=== PATIENT | female | born 1965 | race Caucasian/White ===

== ENCOUNTER 2020-10-06 10:03 | Inpatient (IN) | payer BC, OTHER ==
[~2020-10-06] VITALS: Ht 152.5 cm; Wt 105.3 kg
[2020-10-06] MEDS ORDERED: DOXY100C2 PO (10:45)
[2020-10-06] MEDS ORDERED: CLOR7.5T3 PO (10:45)
[2020-10-06] MEDS ORDERED: SERT-414 PO (10:45)
[2020-10-06] MEDS ORDERED: ALBU2.5V4 INH (10:45)
--- NOTE | 2020-10-06 11:51 | Tele-ICU Consult ---
History of Present Illness History of Present Illness Date Seen by Provider: Oct 06, 2020 Time Seen by Provider: 11:48 Date of Admission Allergies and Home Medications Allergies Uncoded Allergies: NKDA (Allergy, Unknown, 10/06/20) NO KNOWN DRUG ALLERGIES Past Medical/Social/Family Hx Patient Social History Tobacco Use?: No Smoking Status: Never a Smoker Smokeless Tobacco Frequency: Never a User Use of E-Cig and/or Vaping dev: No Substance use?: No Alcohol Use?: No Pt stated abuse/neglect: No Immunizations Up To Date Influenza Vaccine Up-to-Date: No; Not Current First/Initial COVID19 Vaccinat: NON-VACCINATED Tetanus Booster (TDap): Unknown Hepatitis A: No Hepatitis B: No TB Skin Test: None Current Status status: No status: No Advance Directives: No Communicates: Verbally Primary Language: Slovak Preferred Spoken Language: Slovak Is interpretation needed?: No Additional sensory deficits: N/A Implanted or Applied Medical D: None Review of Systems Constitutional: see HPI Sepsis Event Evaluation Height, Weight, BMI Height: '" Weight: lbs. oz. kg; 42.44 BMI Method: Exam Exam Patient acknowledged, consented, and participated in this virtual visit which was conducted using real time audio/video Vital Signs Date Time Temp Pulse Resp B/P (MAP) Pulse Ox O2 Delivery O2 Flow Rate FiO2 10/06/20 11:00 102 31 150/94 (112) 90 Vapotherm 40.00 100.00 10/06/20 10:35 105 10/06/20 10:15 103 31 156/95 (115) 89 Vapotherm 40.00 100.00 Height & Weight Height: '" Weight: lbs. oz. kg; 42.44 BMI Method: General Appearance: Moderate Distress Assessment/Plan Assessment/Plan (Tele-ICU Physician , consultation) Available chart/ vitals / labs / Images reviewed H&P is from discussin with Dr Seth Patient's information available about PMH, Shx, Fhx allergy reviewed in EMR. ROS as per chart and RN report Patient admitted 10/06 - resp failure , intubated and transferred from other facility Now in ICU, hemodynamically stable Video assessment done using teleICU camera, rest of exam as per RN Discussed with RN. Consultants: A/P Acute hypoxic resp failure - on vapotherm , hypoxix - will try BIPAP with precedex , ordered cxr and abg - VERY HIGH RISK FOR INTUBATION -prone position if able - conservative fluid strategy (aim for even or negative fluid balance - RECEIVED 1L IN ER ( high lactate is related to hypoxix and work of breathing ) CXOR-Ntblbubnysw-4/COVID-19 infection- ( symptoms 7.12 , Dx 09/27 - was on doxy -? anything else ) -Remdesivir- as per local MD ( given sever dz , > 2 weeks sickness - no major clinical benefit ) -Steroids IV - started 10/06 -Hypercoagulable state ? , DDIMER on 10/06 1.3 reportedly -> lovenox 100 given in ER, follow D dimer monitor for superimposed bact PNA Will awith bedside MD H=P for additional information , now priority to assess needs for intubation patient is full code additional plans will be in collaboration with bedside consultants and IM MDs. Discussed with RN to reach out if any questions or concerns A total of 35 minutes of critical care time was devoted to this patient today, required to treat and/or prevent further deterioration of critical care condition ( as above ) . BERNARDO BEY MD Oct 06, 2020 11:51
[2020-10-06] MEDS: DexMEDEtomidine 250 ML DRIP 250 ML IV SCH ×2 (12:11→22:51)
[2020-10-06 12:39] LABS: ABG BASE EXCESS -1.5 MMOL/L (-2.5-2.5); ABG OXYGEN SATURATION 87 % (94-100); ABG PCO2 41 MMHG (35-45); ABG PH 7.37 (7.37-7.43); ABG PO2 66 MMHG (79-93); ABG TCO2 24.1 MMOL/L (21.0-31.0)
[2020-10-06 12:41] LABS: ALLENS TEST YES-POS; INSPIRED O2 100%; PATIENT TEMP 99.8; VENTILATOR NO
[2020-10-06] MEDS ORDERED: diphenhydrAMINE 25 MG TAB (BENADRYL) PO PRN (13:00)
[2020-10-06] MEDS ORDERED: polyethylene glycoL POWDER 17 GM (MIRALAX) PACK PO PRN (13:00)
[2020-10-06] MEDS ORDERED: ONDANSETRON 4 MG (ZOFRAN) ORAL DISSOLVE TAB PO PRN (13:00)
[2020-10-06] MEDS ORDERED: MELATONIN 3 MG TABLET PO PRN (13:00)
[2020-10-06] MEDS ORDERED: ANTACID SUSP 30 ML UDC (MYLANTA) PO PRN (13:00)
[2020-10-06] MEDS ORDERED: ONDANSETRON 4 MG/2 ML (SDV) Z0FRAN IV PRN (13:00)
[2020-10-06] MEDS ORDERED: PHARMACY TO DOSE SQ SCH (13:00)
--- NOTE | 2020-10-06 13:08 | Diagnostic Imaging Report ---
INDICATION: Respiratory distress. FINDINGS: Portable chest. There are 5 lobe scattered alveolar and interstitial infiltrates. Heart is not enlarged. No pneumothorax or pleural effusion. No bony abnormalities. IMPRESSION: Bilateral 5 lobe infiltrate. This can be seen with the COVID pneumonia. Dictated by: Dictated on workstation # [id number]
[2020-10-06] MEDS ORDERED: ENOXAPARIN 100 MG/1 ML (LOVENOX) SYR SC SCH (13:15)
[2020-10-06] MEDS ORDERED: CATHETER FLUSH 10 ML SYR IV PRN ×2 (13:15→13:30)
[2020-10-06] MEDS ORDERED: LACTATED RINGERS 1,000 ML IV ONE (13:15)
[2020-10-06] MEDS ORDERED: TOCILIZUMAB INJECTION (NON-FOR 800 MG in NS (IVPB) 60 ML IV ONE (13:30)
[2020-10-06] MEDS ORDERED: RT-ALBUTEROL INHALER HFA (VENTOLIN HFA) 18 GM IH PRN (14:00)
[2020-10-06 14:47] LABS: POTASSIUM 3.9 MMOL/L (3.6-5.0)
[2020-10-06 14:48] LABS: CALCIUM 7.9 MG/DL (8.5-10.1)
[2020-10-06 14:52] LABS: CREATININE SERUM 0.58 MG/DL (0.60-1.30)
[2020-10-06 15:03] VITALS: BP 138/99
[2020-10-06] MEDS: RT-ALBUTEROL INHALER HFA (VENTOLIN HFA) 18 GM IH SCH ×3 (15:03→22:10)
[2020-10-06 16:23] VITALS: BP 124/84
[2020-10-06] MEDS ORDERED: CEFEPIME INJECTION 1,000 MG in WATER (STERILE) FOR INJECTION 10 ML IV NR (16:30)
[2020-10-06] MEDS ORDERED: AZITHROMYCIN INJECTION 500 MG in NS (IVPB) 250 ML IV NR (16:30)
--- NOTE | 2020-10-06 18:06 | History & Physical-Hospitalist ---
History of Present Illness HPI/Chief Complaint Leslie Delgado is a 55-year-old female with anxiety and depression who presented with shortness of breath. She was diagnosed with COVID nine days ago. She started having symptoms 11 days ago. She did not receive the vaccine. She initially presented to the [place] emergency room. Her oxygen saturation was 33% at that time. She was started on high flow oxygen and remained hypoxic. They recommended intubation but she refused. She was started on BiPAP. At the time of my examination she is now wearing a nonrebreather. She appears comfortable and is saturating well. She says she got anxious with the BiPAP on because she is claustrophobic. She is agreeable to being intubated if that is required. She has been having fevers. She has been having a cough. She denies nausea and vomiting. She has had diarrhea. Source: patient Exam Limitations: no limitations Date Seen 10/06/20 Time Seen by a Provider: 13:00 Attending Physician Liliam Shaffer MD PCP Referring Physician Date of Admission Oct 06, 2020 at 10:03 Home Medications & Allergies Home Medications Reviewed patient Home Medication Reconciliation performed by pharmacy medication reconciliations mechanical facilities technician and/or nursing. Patients Allergies have been reviewed. Allergies Allergies Uncoded Allergies NKDA ( Allergy, Unknown, 10/06/20) NO KNOWN DRUG ALLERGIES Past Edpvdey-Ctwaoq-Qurgwx Hx Patient Social History Tobacco Use?: No Smoking Status: Never a Smoker Smokeless Tobacco Frequency: Never a User Use of E-Cig and/or Vaping dev: No Substance use?: No Alcohol Use?: No Pt feels they are or have been: No Immunizations Up To Date First/Initial COVID19 Vaccinat: NON-VACCINATED Tetanus Booster (TDap): Unknown Hepatitis A: No Hepatitis B: No Current Status status: No status: No Advance Directives: No Communicates: Verbally Primary Language: Thai Preferred Spoken Language: Thai Is interpretation needed?: No Additional sensory deficits: N/A Implanted or Applied Medical D: None Family Medical History No Pertinent Family Hx Review of Systems Constitutional: fever, malaise EENTM: no symptoms reported Respiratory: cough, short of breath Cardiovascular: no symptoms reported Gastrointestinal: diarrhea Genitourinary: no symptoms reported Musculoskeletal: no symptoms reported Skin: no symptoms reported Psychiatric/Neurological: No Symptoms Reported Physical Exam Physical Exam Vital Signs Vital Signs - First Documented 10/06/20 10/06/20 10/06/20 10:10 10:15 10:25 Temp 37.8 Pulse 103 Resp 31 B/P (MAP) 156/95 (115) Pulse Ox 89 O2 Delivery Vapotherm O2 Flow Rate 40.00 100.00 FiO2 100 Capillary Refill : Height, Weight, BMI Height: '" Weight: lbs. oz. kg; 42.44 BMI Method: General Appearance: Anxious, Moderate Distress (Uncomfortable) HEENT: PERRL/EOMI, Other (Wearing nonrebreather) Neck: Normal Inspection, Supple Respiratory: No Respiratory Distress, Decreased Breath Sounds Cardiovascular: Regular Rate, Rhythm, No Edema, No Murmur, Normal Peripheral Pulses Gastrointestinal: Normal Bowel Sounds, Non Tender, Soft Extremity: Normal Inspection, Non Tender, No Pedal Edema Neurologic/Psychiatric: Alert, Oriented x3, No Motor/Sensory Deficits, Normal Mood/Affect Skin: Normal Color, Warm/Dry Lymphatic: No Adenopathy Results Results/Procedures Labs Laboratory Tests 10/06/20 14:00 Patient resulted labs reviewed. Imaging: Reviewed Imaging Report Assessment/Plan Admission Diagnosis Acute respiratory failure due to COVID-19 Admission Status: Inpatient Order (span 2 midnights) Reason for Inpatient Admission: Respiratory failure Assessment and Plan Acute respiratory failure due to COVID-19 Bacterial pneumonia Hypercoagulable state associated with COVID-19 Covid+ 9 days ago, symptoms started 11 days ago Profoundly hypoxic on arrival Admit to ICU on BiPAP/Vapotherm Begin Decadron Giving Actemra, discussed risks/benefits/EUA use and patient agrees Procalcitonin elevated Chest xray with 5 lobe infiltrates Begin Cefepime and Azithromycin D-dimer elevated, monitor Therapeutic Lovenox Protonix Morbid obesity Clinically significant, no acute management needs Critical Care Critically Ill Patient Diagnosis/Problems Diagnosis/Problems (1) Acute respiratory failure due to COVID-19 Status: Acute (2) Bacterial pneumonia Status: Acute (3) Hypercoagulable state associated with COVID-19 Status: Acute (4) Morbid obesity Status: Chronic (5) Anxiety and depression Status: Chronic LILIAM SHAFFER MD Oct 06, 2020 18:06
[2020-10-06] MEDS: ENOXAPARIN 100 MG/1 ML (LOVENOX) SYR SC SCH (18:19)
[2020-10-06 19:10] VITALS: BP 125/86
[2020-10-06] MEDS: SENNOSIDES 8.6 MG (SENOKOT) TAB PO SCH (20:48)
[2020-10-06] MEDS: DOCUSATE SODIUM 100 MG (COLACE) CAP PO SCH (20:48)
[2020-10-06 22:11] VITALS: BP 109/74
[2020-10-07] MEDS: CEFEPIME INJECTION 1,000 MG in WATER (STERILE) FOR INJECTION 10 ML IV SCH ×5 (00:27→23:29)
[2020-10-07] MEDS: RT-ALBUTEROL INHALER HFA (VENTOLIN HFA) 18 GM IH SCH ×4 (02:42→19:13)
[2020-10-07 03:23] LABS: BASOPHILS % (AUTO) 0 % (0-10); EOSINOPHILS % (AUTO) 0 % (0-10); HEMATOCRIT 34 % (35-52); HEMOGLOBIN 11.1 g/dL (11.5-16.0); LYMPHOCYTES # (AUTO) 0.9 10^3/uL (1.0-4.0); LYMPHOCYTES % (AUTO) 16 % (12-44); MEAN CORPUSCULAR HEMOGLOBIN 29 pg (25-34); MEAN CORPUSCULAR HGB CONC 33 g/dL (32-36); MEAN CORPUSCULAR VOLUME 88 fL (80-99); MONOCYTES # (AUTO) 0.2 10^3/uL (0.0-1.0); MONOCYTES % (AUTO) 3 % (0-12); NEUTROPHILS # (AUTO) 4.4 10^3/uL (1.8-7.8); NEUTROPHILS % (AUTO) 77 % (42-75); PLATELET COUNT 345 10^3/uL (130-400); WHITE BLOOD COUNT 5.7 10^3/uL (4.3-11.0)
[2020-10-07 03:36] LABS: ALBUMIN 3.3 GM/DL (3.2-4.5); POTASSIUM 3.6 MMOL/L (3.6-5.0)
[2020-10-07 03:39] LABS: TOTAL PROTEIN 6.3 GM/DL (6.4-8.2)
[2020-10-07 03:40] LABS: BILIRUBIN,TOTAL 0.3 MG/DL (0.1-1.0)
[2020-10-07 03:42] LABS: CREATININE SERUM 0.72 MG/DL (0.60-1.30); PHOSPHORUS 2.6 MG/DL (2.3-4.7)
[2020-10-07 03:45] LABS: MAGNESIUM 2.1 MG/DL (1.6-2.4)
[2020-10-07] MEDS: DexMEDEtomidine 250 ML DRIP 250 ML IV SCH ×3 (06:09→17:57)
[2020-10-07] MEDS: ENOXAPARIN 100 MG/1 ML (LOVENOX) SYR SC SCH (06:10)
[2020-10-07 07:35] VITALS: BP 148/100
[2020-10-07] MEDS: POTASSIUM CL 10MEQ/50ML IVPB 50 ML IV SCH ×2 (08:46→09:52)
[2020-10-07] MEDS: PANTOPRAZOLE 40 MG (PROTONIX) VIAL IV SCH (08:46)
[2020-10-07] MEDS: SENNOSIDES 8.6 MG (SENOKOT) TAB PO SCH ×2 (08:46→20:22)
[2020-10-07] MEDS: AZITHROMYCIN INJECTION 250 MG in NS (IVPB) 250 ML IV SCH (08:46)
[2020-10-07] MEDS: DOCUSATE SODIUM 100 MG (COLACE) CAP PO SCH ×2 (08:46→20:22)
--- NOTE | 2020-10-07 09:50 | Progress Note - Hospitalist ---
Subjective HPI/CC On Admission Date Seen by Provider: Oct 07, 2020 Time Seen by Provider: 06:55 Leslie Delgado is a 55-year-old female with anxiety and depression who presented with shortness of breath. She was diagnosed with COVID nine days ago. She started having symptoms 11 days ago. She did not receive the vaccine. She initially presented to the [place] emergency room. Her oxygen saturation was 33% at that time. She was started on high flow oxygen and remained hypoxic. They recommended intubation but she refused. She was started on BiPAP. At the time of my examination she is now wearing a nonrebreather. She appears comfortable and is saturating well. She says she got anxious with the BiPAP on because she is claustrophobic. She is agreeable to being intubated if that is required. She has been having fevers. She has been having a cough. She denies nausea and vomiting. She has had diarrhea. Subjective/Events-last exam She is feeling a little bit better today. She is not feeling short of breath. She does feel anxious. Focused Exam Lactate Level 10/06/20 14:00: Lactic Acid Level 1.14 Objective Exam Vital Signs Vital Signs Date Time Temp Pulse Resp B/P (MAP) Pulse Ox O2 Delivery O2 Flow Rate FiO2 10/07/20 09:03 NIV Bilevel 95.00 10/07/20 09:00 71 31 91 10/07/20 08:00 100 10/07/20 07:59 35.5 10/07/20 04:00 148/100 (116) Capillary Refill : General Appearance: No Apparent Distress, Anxious Respiratory: Lungs Clear, No Respiratory Distress, Other Cardiovascular: Regular Rate, Rhythm, No Edema, No Murmur (Wearing BiPAP) Gastrointestinal: Normal Bowel Sounds, Non Tender, Soft Extremity: Normal Inspection, Non Tender, No Pedal Edema Neurologic/Psychiatric: Alert, Oriented x3, No Motor/Sensory Deficits, Normal Mood/Affect Skin: Normal Color, Warm/Dry Results/Procedures Lab Laboratory Tests 10/06/20 14:00 10/07/20 03:10 Patient resulted labs reviewed. Imaging: Reviewed Imaging Report Assessment/Plan Assessment and Plan Assess & Plan/Chief Complaint Acute respiratory failure due to COVID-19 Bacterial pneumonia Hypercoagulable state associated with COVID-19 Covid+ 09/27, symptoms started 09/24 Profoundly hypoxic on arrival Chest xray with 5 lobe infiltrates Currently on BiPAP, attempt Vapotherm today if able Continue Decadron s/p Actemra Convalescent plasma ordered, discussed risk/benefits/EUA use and patient agrees Procalcitonin elevated Continue Cefepime and Azithromycin D-dimer mildly elevated, monitor Prophylactic Lovenox Protonix Morbid obesity Clinically significant, no acute management needs DVT prophylaxis: Lovenox Critical Care Critically Ill Patient Diagnosis/Problems Diagnosis/Problems (1) Acute respiratory failure due to COVID-19 Status: Acute (2) Bacterial pneumonia Status: Acute (3) Hypercoagulable state associated with COVID-19 Status: Acute (4) Morbid obesity Status: Chronic (5) Anxiety and depression Status: Chronic LINDY SHAFFER MD Oct 07, 2020 09:50
[2020-10-07] MEDS ORDERED: LORazepam INJ 2 MG/ML (ATIVAN) VIAL IVP PRN ×2 (10:00→13:45)
--- NOTE | 2020-10-07 10:03 | Tele-ICU Progress Note ---
Subjective Date Seen by a Provider: Oct 07, 2020 Time Seen by a Provider: 08:30 Subjective/Events-last exam Patient participated in this virtual visit which was conducted using real time audio/video. Thank you for asking us to see this patient for respiratory insufficiency and distress. HPC: Recent events: Covid pna, not vaccinated. Maxed on Precedex. PMH: obesity SH: smoking history neg FH: Non-contributory ROS: limited by patient's clinical condition, but anxious PE: Obese. VSS HR 77 BP 145/100 RR 22 92%O2 sat on BiPAP 30/12 HEENT: No obvious masses, adenopathy or JVD. Chest: clear to auscultation. CV: RRR S1 S2 No murmur or added sounds. Abd: Non-tender. Bowel sounds . : Unremarkable. Cross . REINSURANCE ANALYST/psychiatric: Anxious Alert and oriented, grossly intact. No obvious focal findings. Extremities: edema. Capillary refill < 3 seconds. Skin: unremarkable. Results: Elevated HCO3. A/P: Respiratory insufficiency/distress due to Covid pna. Available chart/ vitals / labs /images reviewed. Video assessment done using teleICU camera, rest of exam as per RN. Respiratory: Continue present management with BiPAP. Intubate if nec. Monitor for increasing oxygenation needs and/or need for intubation. Cont Precedex. Critical Care: critically ill patient. Discussed with NEHA Haynes. Asked RN to reach out to eICU if any questions or concerns later. Time spent with patient/coordination of care with other health professionals (mins):15 Review of Systems see free text Sepsis Event Evaluation Sepsis Stage: Ruled Out Height, Weight, BMI Height: '" Weight: lbs. oz. kg; 42.44 BMI Method: Focused Exam Sepsis Stage: Ruled Out Lactate Level 10/06/20 14:00: Lactic Acid Level 1.14 Exam Exam Patient acknowledged, consented, and participated in this virtual visit which was conducted using real time audio/video Vital Signs Date Time Temp Pulse Resp B/P (MAP) Pulse Ox O2 Delivery O2 Flow Rate FiO2 10/07/20 09:03 NIV Bilevel 95.00 10/07/20 09:00 71 31 91 NIV Bilevel 100.00 10/07/20 08:00 70 39 91 NIV Bilevel 100.00 10/07/20 08:00 93 NIV Bilevel 100 10/07/20 07:59 35.5 10/07/20 07:35 69 40 89 100.00 10/07/20 07:00 70 23 90 NIV Bilevel 100.00 10/07/20 07:00 71 10/07/20 06:00 73 29 96 NIV Bilevel 100.00 10/07/20 05:00 75 38 98 NIV Bilevel 100.00 10/07/20 04:00 93 NIV Bilevel 100 10/07/20 04:00 85 29 148/100 (116) 98 NIV Bilevel 100.00 10/07/20 03:00 79 NIV Bilevel 100.00 10/07/20 02:00 68 43 134/86 (102) 93 NIV Bilevel 95.00 10/07/20 01:00 69 39 142/93 (109) 91 NIV Bilevel 95.00 10/07/20 01:00 69 10/07/20 00:00 95 NIV Bilevel 95 10/07/20 00:00 73 41 137/93 (108) 94 NIV Bilevel 95.00 10/06/20 23:05 36.7 10/06/20 23:00 73 38 133/82 (99) 94 NIV Bilevel 95.00 10/06/20 22:51 71 95/67 10/06/20 22:11 74 30 100 95.00 10/06/20 22:00 70 41 95/67 (76) 94 NIV Bilevel 100.00 10/06/20 21:00 74 35 128/85 (99) 96 NIV Bilevel 100.00 10/06/20 20:00 75 28 112/74 (87) 95 NIV Bilevel 100.00 10/06/20 20:00 97 NIV Bilevel 95 10/06/20 19:51 36.3 10/06/20 19:10 76 28 100 100.00 10/06/20 19:00 72 10/06/20 19:00 72 30 111/75 (87) 94 NIV Bilevel 100.00 10/06/20 18:00 80 33 117/83 (94) 93 NIV Bilevel 100.00 10/06/20 17:00 74 25 119/82 (94) 100 NIV Bilevel 100.00 10/06/20 16:29 92 NIV Bilevel 100 10/06/20 16:23 77 92 100 10/06/20 16:14 37.3 7/23/21 16:00 77 30 124/84 (97) 92 NIV Bilevel 100.00 10/06/20 15:09 NIV Bilevel 100.00 10/06/20 15:03 78 38 95 100.00 10/06/20 15:00 86 25 138/99 (109) 96 Vapotherm 40.00 100.00 10/06/20 14:00 81 35 132/90 (106) 88 Vapotherm 40.00 100.00 10/06/20 13:09 94 159/97 10/06/20 13:00 92 10/06/20 13:00 90 31 159/97 (114) 93 Vapotherm 40.00 100.00 10/06/20 12:26 37.7 10/06/20 12:11 100 142/86 10/06/20 12:02 Vapotherm 40.00 100 10/06/20 12:00 94 146/88 (107) 87 Vapotherm 40.00 100.00 10/06/20 11:30 87 Vapotherm 40.00 100 10/06/20 11:00 102 31 150/94 (112) 90 Vapotherm 40.00 100.00 10/06/20 10:35 105 10/06/20 10:25 Vapotherm 40.00 100 10/06/20 10:15 103 31 156/95 (115) 89 Vapotherm 40.00 100.00 10/06/20 10:10 37.8 I & O 10/07/20 07:00 Intake Total 1860 ml Output Total 1785 ml Balance 75 ml Height & Weight Height: '" Weight: lbs. oz. kg; 42.44 BMI Method: General Appearance: No Apparent Distress, Anxious HEENT: PERRL/EOMI, Other (Wearing nonrebreather) Neck: Normal Inspection, Supple Respiratory: Lungs Clear, No Respiratory Distress, Other Cardiovascular: Regular Rate, Rhythm, No Edema, No Murmur (Wearing BiPAP) Extremity: Normal Inspection, Non Tender, No Pedal Edema Neurologic/Psychiatric: Alert, Oriented x3, No Motor/Sensory Deficits, Normal Mood/Affect Skin: Normal Color, Warm/Dry Lymphatic: No Adenopathy Results Lab Laboratory Tests 10/06/20 14:00 10/07/20 03:10 Assessment/Plan Assessment/Plan see free text. Critical Care: Critically Ill Patient Time spent on discussion(mins): 0 NADEEN GATICA MD Oct 07, 2020 10:03
[2020-10-07 11:00] VITALS: BP 129/89
[2020-10-07] MEDS ORDERED: NS IV 1000 ML 1,000 ML ONE (11:32)
--- NOTE | 2020-10-07 12:05 | Tele-ICU Progress Note ---
Subjective Date Seen by a Provider: Oct 07, 2020 Time Seen by a Provider: 11:40 Subjective/Events-last exam Called by RN that pt failing BPAP w RR in the 40s. Recommended intubation. Review of Systems see free text Sepsis Event Evaluation Sepsis Stage: Ruled Out Height, Weight, BMI Height: '" Weight: lbs. oz. kg; 42.44 BMI Method: Focused Exam Sepsis Stage: Ruled Out Lactate Level 10/06/20 14:00: Lactic Acid Level 1.14 Exam Exam Patient acknowledged, consented, and participated in this virtual visit which was conducted using real time audio/video Vital Signs Date Time Temp Pulse Resp B/P (MAP) Pulse Ox O2 Delivery O2 Flow Rate FiO2 10/07/20 11:00 77 39 95 80.00 10/07/20 11:00 75 129/89 (102) 98 NIV Bilevel 95.00 10/07/20 10:00 75 91 NIV Bilevel 95.00 10/07/20 09:03 NIV Bilevel 95.00 10/07/20 09:00 71 31 91 NIV Bilevel 100.00 10/07/20 08:00 70 39 91 NIV Bilevel 100.00 10/07/20 08:00 93 NIV Bilevel 100 10/07/20 07:59 35.5 10/07/20 07:35 69 40 89 100.00 10/07/20 07:00 70 23 90 NIV Bilevel 100.00 10/07/20 07:00 71 10/07/20 06:00 73 29 96 NIV Bilevel 100.00 10/07/20 05:00 75 38 98 NIV Bilevel 100.00 10/07/20 04:00 93 NIV Bilevel 100 10/07/20 04:00 85 29 148/100 (116) 98 NIV Bilevel 100.00 10/07/20 03:00 79 NIV Bilevel 100.00 10/07/20 02:00 68 43 134/86 (102) 93 NIV Bilevel 95.00 10/07/20 01:00 69 39 142/93 (109) 91 NIV Bilevel 95.00 10/07/20 01:00 69 10/07/20 00:00 95 NIV Bilevel 95 10/07/20 00:00 73 41 137/93 (108) 94 NIV Bilevel 95.00 10/06/20 23:05 36.7 10/06/20 23:00 73 38 133/82 (99) 94 NIV Bilevel 95.00 10/06/20 22:51 71 95/67 10/06/20 22:11 74 30 100 95.00 10/06/20 22:00 70 41 95/67 (76) 94 NIV Bilevel 100.00 10/06/20 21:00 74 35 128/85 (99) 96 NIV Bilevel 100.00 10/06/20 20:00 75 28 112/74 (87) 95 NIV Bilevel 100.00 10/06/20 20:00 97 NIV Bilevel 95 10/06/20 19:51 36.3 10/06/20 19:10 76 28 100 100.00 10/06/20 19:00 72 10/06/20 19:00 72 30 111/75 (87) 94 NIV Bilevel 100.00 10/06/20 18:00 80 33 117/83 (94) 93 NIV Bilevel 100.00 10/06/20 17:00 74 25 119/82 (94) 100 NIV Bilevel 100.00 10/06/20 16:29 92 NIV Bilevel 100 10/06/20 16:23 77 92 100 10/06/20 16:14 37.3 10/06/20 16:00 77 30 124/84 (97) 92 NIV Bilevel 100.00 10/06/20 15:09 NIV Bilevel 100.00 10/06/20 15:03 78 38 95 100.00 10/06/20 15:00 86 25 138/99 (109) 96 Vapotherm 40.00 100.00 10/06/20 14:00 81 35 132/90 (106) 88 Vapotherm 40.00 100.00 10/06/20 13:09 94 159/97 10/06/20 13:00 92 10/06/20 13:00 90 31 159/97 (114) 93 Vapotherm 40.00 100.00 10/06/20 12:26 37.7 10/06/20 12:11 100 142/86 10/06/20 12:02 Vapotherm 40.00 100 10/06/20 12:00 94 146/88 (107) 87 Vapotherm 40.00 100.00 I & O 10/07/20 07:00 Intake Total 1860 ml Output Total 1785 ml Balance 75 ml Height & Weight Height: '" Weight: lbs. oz. kg; 42.44 BMI Method: General Appearance: No Apparent Distress, Anxious HEENT: PERRL/EOMI, Other (Wearing nonrebreather) Neck: Normal Inspection, Supple Respiratory: Lungs Clear, No Respiratory Distress, Other Cardiovascular: Regular Rate, Rhythm, No Edema, No Murmur (Wearing BiPAP) Extremity: Normal Inspection, Non Tender, No Pedal Edema Neurologic/Psychiatric: Alert, Oriented x3, No Motor/Sensory Deficits, Normal Mood/Affect Skin: Normal Color, Warm/Dry Lymphatic: No Adenopathy Results Lab Laboratory Tests 10/06/20 14:00 10/07/20 03:10 Assessment/Plan Assessment/Plan Recommend intubation. Critical Care: Critically Ill Patient Time spent on discussion(mins): 0 NADEEN GATICA MD Oct 07, 2020 12:05
[2020-10-07] MEDS ORDERED: PROPOFOL DRIP (ICU) 100 ML IV ONE (12:18)
[2020-10-07] MEDS ORDERED: ROCURONIUM 10 MG/ML 5 ML SYRINGE IV ONE ×2 (12:30→16:41)
--- NOTE | 2020-10-07 12:44 | Procedure/Intervention Note ---
Procedures/Interventions Date of ETT Placement: Oct 07, 2020 Time of ETT Placement: 12:20 Intubation Method: orotracheal Tube Size: 7 Medications: Etomidate, Rocuronium Positive End Tide CO2: Yes Breath Sounds after Intubation: bilateral-equal Intubation Complications: no complications Post Intubation Xray: Yes I was called to ICU room #6 by warehouse assistant to help with intubation for this patient admitted with COVID-19 who is failing BiPAP therapy. Oxygen saturation 92% on BiPAP with respiratory rate of 40. We sedated with 20 mg of etomidate paralyzed with 50 mg of rocuronium. A size 7 endotracheal tube was inserted through the vocal cords using a glide scope. Resultant improvement in oxygenation. Ventilator settings to be managed by eICU. Initial settings PEEP of 15, tidal volume 400, rate of 20, 100% FiO2. This has SPO2 of 87% at this time. Patient was initially reluctant to proceed with intubation. She was alert and oriented to person place and time. She knew that it was September, today was Friday and the year is 2020. She knows she is at the hospital. We then spoke over speaker phone with her Brodie who convinced her to proceed with intubation and she says "okay". DRAKE CASTREJON APRN Oct 07, 2020 12:44
[2020-10-07] MEDS: PROPOFOL DRIP (ICU) 100 ML IV SCH ×3 (12:51→20:22)
[2020-10-07 12:59] VITALS: BP 198/126
[2020-10-07] MEDS ORDERED: fentaNYL DRIP PRE-MIX 250 ML IV ONE (13:06)
[2020-10-07] MEDS: fentaNYL DRIP PRE-MIX 250 ML IV SCH ×2 (13:13→20:20)
--- NOTE | 2020-10-07 13:30 | Diagnostic Imaging Report ---
EXAMINATION: Orogastric tube placement. FINDINGS: Endotracheal tube extends just below the level of the clavicular heads well above the dar. The enteric tube extends to the stomach. There are diffuse bilateral pulmonary interstitial and alveolar infiltrates and consolidation. The features are not significantly changed from the prior exam. There is no large effusion evident or findings of a pneumothorax. Right PICC line is in place. IMPRESSION: 1. Endotracheal tube and enteric tube appear appropriately positioned. Right PICC line remains in place. There are diffuse bilateral interstitial and alveolar pulmonary infiltrates within both lungs, not significantly changed from prior exam. Considerations would include both multifocal pneumonia and pulmonary edema. Dictated by: Dictated on workstation # [id number]
[2020-10-07] MEDS: ACETAMINOPHEN 325 MG TABLET PO PRN ×2 (14:33→20:27)
--- NOTE | 2020-10-07 14:47 | Anesthesia-Procedure Note ---
Procedures/Interventions Procedure Start/Stop/Diagnosis Date of Procedure: Oct 07, 2020 Start Time: 14:01 Referring Physician: eICU Brief History US used to place 20g arterial line in left brachial. Attempted left radial first with no success. Good view with US and obtained bright red blood with 1 stick. Threaded catheter easily with good waveform noted and pulsatile blood. Opsite placed and reported off to NEHA Hallman. Stop Time: 14:30 Arterial Line Arterial Line Catheter: 20G Type: Brachial Location: Left Procedure: prepped, draped in sterile fashion, good wave-form was obtained, patient tolerated procedure well, no immediate complications, post procedure area cleaned, post procedure dressing applied PHOEBE LAIRD CRNA Oct 07, 2020 14:47
[2020-10-07 14:48] LABS: ABG BASE EXCESS -2.8 MMOL/L (-2.5-2.5); ABG OXYGEN SATURATION 95 % (94-100); ABG PCO2 47 MMHG (35-45); ABG PO2 126 MMHG (79-93); ABG TCO2 23.6 MMOL/L (21.0-31.0)
[2020-10-07 14:56] LABS: ABG PH 7.31 (7.37-7.43); ALLENS TEST ARTLINE
[2020-10-07 14:57] LABS: INSPIRED O2 100%; PATIENT TEMP 38.4; VENTILATOR YES
[2020-10-07] MEDS ORDERED: ETOMIDATE IV SOLN 20 MG/10 ML VIAL IV ONE (16:41)
[2020-10-07] MEDS: ENOXAPARIN 40 MG/0.4 ML (LOVENOX) SYR SQ SCH (17:48)
[2020-10-07 19:13] VITALS: BP 91/84
[2020-10-07] MEDS: LACRI-LUBE OPTHALMIC OINT 3.5 GM TUBE OU SCH (21:45)
[2020-10-08] MEDS: DexMEDEtomidine 250 ML DRIP 250 ML IV SCH ×5 (01:00→19:57)
[2020-10-08] MEDS: PROPOFOL DRIP (ICU) 100 ML IV SCH ×6 (01:00→22:14)
[2020-10-08 02:44] VITALS: BP 98/63
[2020-10-08] MEDS: RT-ALBUTEROL INHALER HFA (VENTOLIN HFA) 18 GM IH SCH ×6 (02:44→22:12)
[2020-10-08] MEDS: D5 1/2 NS 1000 ML IV SOLUTION 1,000 ML IV SCH (02:53)
[2020-10-08] MEDS: fentaNYL DRIP PRE-MIX 250 ML IV SCH ×3 (02:53→19:56)
[2020-10-08 03:24] LABS: ABG OXYGEN SATURATION 90 % (94-100); ABG PCO2 42 MMHG (35-45); ABG PH 7.36 (7.37-7.43); ABG PO2 77 MMHG (79-93); ABG TCO2 23.5 MMOL/L (21.0-31.0)
[2020-10-08 03:25] LABS: BASOPHILS % (AUTO) 0 % (0-10); EOSINOPHILS # (AUTO) 0.1 10^3/uL (0.0-0.3); EOSINOPHILS % (AUTO) 1 % (0-10); HEMATOCRIT 33 % (35-52); HEMOGLOBIN 10.7 g/dL (11.5-16.0); LYMPHOCYTES # (AUTO) 0.7 10^3/uL (1.0-4.0); LYMPHOCYTES % (AUTO) 11 % (12-44); MEAN CORPUSCULAR HEMOGLOBIN 29 pg (25-34); MEAN CORPUSCULAR HGB CONC 32 g/dL (32-36); MEAN CORPUSCULAR VOLUME 89 fL (80-99); MONOCYTES # (AUTO) 0.2 10^3/uL (0.0-1.0); MONOCYTES % (AUTO) 3 % (0-12); NEUTROPHILS # (AUTO) 5.2 10^3/uL (1.8-7.8); NEUTROPHILS % (AUTO) 81 % (42-75); PLATELET COUNT 370 10^3/uL (130-400); WHITE BLOOD COUNT 6.4 10^3/uL (4.3-11.0)
[2020-10-08 03:27] LABS: ALLENS TEST ART LINE; INSPIRED O2 50%; PATIENT TEMP 38.6; VENTILATOR YES
[2020-10-08 03:33] LABS: ALBUMIN 3.1 GM/DL (3.2-4.5); POTASSIUM 3.9 MMOL/L (3.6-5.0)
[2020-10-08 03:34] LABS: CALCIUM 7.6 MG/DL (8.5-10.1)
[2020-10-08 03:37] LABS: BILIRUBIN,TOTAL 0.3 MG/DL (0.1-1.0)
[2020-10-08 03:39] LABS: CREATININE SERUM 0.74 MG/DL (0.60-1.30)
[2020-10-08 03:42] LABS: MAGNESIUM 2.2 MG/DL (1.6-2.4)
[2020-10-08] MEDS: CEFEPIME INJECTION 1,000 MG in WATER (STERILE) FOR INJECTION 10 ML IV SCH ×4 (05:20→23:55)
[2020-10-08] MEDS: KCL 20 MEQ TAB (K-DUR) PO SCH (05:22)
[2020-10-08] MEDS: POTASSIUM CL 10MEQ/50ML IVPB 50 ML IV SCH (05:22)
[2020-10-08] MEDS: MAGNESIUM 1 GM/100 ML IVPB 100 ML IV SCH (05:22)
[2020-10-08] MEDS: ENOXAPARIN 40 MG/0.4 ML (LOVENOX) SYR SQ SCH ×2 (06:25→17:43)
[2020-10-08] MEDS: ACETAMINOPHEN 325 MG TABLET PO PRN ×2 (06:25→22:01)
[2020-10-08 06:39] VITALS: BP 115/77
[2020-10-08] MEDS: DOCUSATE SODIUM 100 MG (COLACE) CAP PO SCH (07:34)
[2020-10-08] MEDS: PANTOPRAZOLE 40 MG (PROTONIX) VIAL IV SCH (07:35)
[2020-10-08] MEDS: SENNOSIDES 8.6 MG (SENOKOT) TAB PO SCH ×2 (07:35→20:26)
[2020-10-08] MEDS: LACRI-LUBE OPTHALMIC OINT 3.5 GM TUBE OU SCH ×2 (07:35→19:57)
[2020-10-08] MEDS: AZITHROMYCIN INJECTION 250 MG in NS (IVPB) 250 ML IV SCH (07:35)
[2020-10-08] MEDS ORDERED: MIDAZOLAM DRIP PRE-MIX 100 ML IV ONE (09:12)
[2020-10-08] MEDS: MIDAZOLAM DRIP PRE-MIX 100 ML IV SCH (09:24)
[2020-10-08 09:30] VITALS: BP 115/77
--- NOTE | 2020-10-08 10:02 | Tele-ICU Progress Note ---
Progress Note video rounds completed 55 y/o female intubated with COVID PNA Vent: 24/400/90%/20 sedated with precedex, propofol PE: pulse: 92 NSR BP: 135/69 O2 sat: 99% Labs: wbc: 6.4 Hgb: 10.7 Plt: 370 Na: 146 K: 3.9 Cl: 112 CO2: 18 ab.36/42/77 MEDS: protonix Lovenox cefepime Azithromycin Decedron 6/day PLAN: continue full vent support, wean as feasble On GI and DVT prophylaxis. Laboratory Tests 10/06/20 12:17: Arterial Blood Partial Pressure O2 66L, Arterial Blood Oxygen Saturation 87L 10/06/20 14:00: Chloride Level 109H, Creatinine 0.58L, Glucose Level 163H, Calcium Level 7.9L, Procalcitonin 0.36H 10/06/20 18:35: Glucometer 158H 10/06/20 23:05: Glucometer 134H 10/07/20 03:10: Hemoglobin 11.1L, Hematocrit 34L, Neutrophils (%) (Auto) 77H, Lymphocytes # (Auto) 0.9L, Immature Granulocyte # (Auto) 0.2H, D-Dimer 1.80H, Chloride Level 112H, Glucose Level 123H, Calcium Level 8.0L, Aspartate Amino Transf (AST/SGOT) 55H, Total Protein 6.3L 10/07/20 11:15: Glucometer 144H 10/07/20 14:39: Arterial Blood pH 7.31*L, Arterial Blood Partial Pressure CO2 47H, Arterial Blood Partial Pressure O2 126H, Arterial Blood HCO3 22L, Arterial Blood Base Excess -2.8L 10/07/20 17:53: Glucometer 140H 10/08/20 00:57: Glucometer 126H 10/08/20 03:00: Red Blood Count 3.71L, Hemoglobin 10.7L, Hematocrit 33L, Red Cell Distribution Width 14.9H, Neutrophils (%) (Auto) 81H, Lymphocytes (%) (Auto) 11L, Lymphocytes # (Auto) 0.7L, Immature Granulocyte # (Auto) 0.2H, Arterial Blood pH 7.36L, Arterial Blood Partial Pressure O2 77L, Arterial Blood HCO3 22L, Arterial Blood Oxygen Saturation 90L, Sodium Level 146H, Chloride Level 112H, Carbon Dioxide Level 18L, Anion Gap 16H, Glucose Level 122H, Calcium Level 7.6L, Corrected Calcium 8.3L, Aspartate Amino Transf (AST/SGOT) 39H, Total Protein 6.0L, Albumin 3.1L Focused Exam Lactate Level 10/06/20 14:00: Lactic Acid Level 1.14 Height, Weight, BMI Height: '" Weight: lbs. oz. kg; 42.44 BMI Method: BROOKLYN MARS MD Oct 08, 2020 10:02
--- NOTE | 2020-10-08 12:21 | Progress Note - Hospitalist ---
Subjective HPI/CC On Admission Date Seen by Provider: Oct 08, 2020 Time Seen by Provider: 09:15 Leslie Delgado is a 55-year-old female with anxiety and depression who presented with shortness of breath. She was diagnosed with COVID nine days ago. She started having symptoms 11 days ago. She did not receive the vaccine. She initially presented to the [place] emergency room. Her oxygen saturation was 33% at that time. She was started on high flow oxygen and remained hypoxic. They recommended intubation but she refused. She was started on BiPAP. At the time of my examination she is now wearing a nonrebreather. She appears comfortable and is saturating well. She says she got anxious with the BiPAP on because she is claustrophobic. She is agreeable to being intubated if that is required. She has been having fevers. She has been having a cough. She denies nausea and vomiting. She has had diarrhea. Subjective/Events-last exam She is intubated and sedated. She is still awake and trying to communicate. 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 Imaging: Reviewed Imaging Report Assessment/Plan Assessment and Plan Assess & Plan/Chief Complaint Acute respiratory failure due to COVID-19 Bacterial pneumonia Hypercoagulable state associated with COVID-19 Covid+ 09/27, symptoms started 09/24 Profoundly hypoxic on arrival Chest xray with 5 lobe infiltrates Currently on BiPAP, attempt Vapotherm today if able Continue Decadron s/p Actemra Awaiting convalescent plasma, discussed risk/benefits/EUA use and patient agreed Procalcitonin elevated Continue Cefepime and Azithromycin D-dimer mildly elevated, monitor Prophylactic Lovenox IV Protonix Morbid obesity Clinically significant, no acute management needs DVT prophylaxis: Lovenox Critical Care Critically Ill Patient Diagnosis/Problems Diagnosis/Problems (1) Acute respiratory failure due to COVID-19 Status: Acute (2) Endotracheally intubated Status: Acute (3) Bacterial pneumonia Status: Acute (4) Hypercoagulable state associated with COVID-19 Status: Acute (5) Morbid obesity Status: Chronic (6) Anxiety and depression Status: Chronic LINDY SHAFFER MD Oct 08, 2020 12:21
[2020-10-08 13:59] VITALS: BP 137/72
[2020-10-08 19:13] VITALS: BP 105/75
[2020-10-08] MEDS ORDERED: inSUlin ASPART (NovoLOG) 1 UNIT/0.01 ML (CHARGE PER UNIT) SC SCH (20:00)
[2020-10-08] MEDS: DOCUSATE SODIUM 10 MG/ML 10 ML UDC (COLACE) PO SCH (20:26)
[2020-10-08 22:12] VITALS: BP 121/77
[2020-10-08] MEDS: inSUlin ASPART (NovoLOG) 1 UNIT/0.01 ML (CHARGE PER UNIT) SC SCH (23:56)
[2020-10-09] MEDS: PROPOFOL DRIP (ICU) 100 ML IV SCH ×3 (02:03→09:25)
[2020-10-09] MEDS: MIDAZOLAM DRIP PRE-MIX 100 ML IV SCH (02:05)
[2020-10-09] MEDS: DexMEDEtomidine 250 ML DRIP 250 ML IV SCH ×2 (02:05→08:48)
[2020-10-09 02:14] VITALS: BP 111/65
[2020-10-09] MEDS: RT-ALBUTEROL INHALER HFA (VENTOLIN HFA) 18 GM IH SCH ×3 (02:14→10:02)
[2020-10-09] MEDS: D5 1/2 NS 1000 ML IV SOLUTION 1,000 ML IV SCH ×2 (03:12→08:46)
[2020-10-09 03:43] LABS: BASOPHILS % (AUTO) 0 % (0-10); EOSINOPHILS # (AUTO) 0.1 10^3/uL (0.0-0.3); EOSINOPHILS % (AUTO) 1 % (0-10); HEMATOCRIT 31 % (35-52); HEMOGLOBIN 10.2 g/dL (11.5-16.0); LYMPHOCYTES # (AUTO) 1.1 10^3/uL (1.0-4.0); LYMPHOCYTES % (AUTO) 16 % (12-44); MEAN CORPUSCULAR HEMOGLOBIN 30 pg (25-34); MEAN CORPUSCULAR HGB CONC 33 g/dL (32-36); MEAN CORPUSCULAR VOLUME 91 fL (80-99); MEAN PLATELET VOLUME 8.9 fL (9.0-12.2); MONOCYTES # (AUTO) 0.2 10^3/uL (0.0-1.0); MONOCYTES % (AUTO) 3 % (0-12); NEUTROPHILS # (AUTO) 5.2 10^3/uL (1.8-7.8); NEUTROPHILS % (AUTO) 73 % (42-75); PLATELET COUNT 199 10^3/uL (130-400); WHITE BLOOD COUNT 7.1 10^3/uL (4.3-11.0)
[2020-10-09 03:53] LABS: ALBUMIN 3.1 GM/DL (3.2-4.5); POTASSIUM 3.8 MMOL/L (3.6-5.0)
[2020-10-09 03:55] LABS: CALCIUM 7.3 MG/DL (8.5-10.1)
[2020-10-09 03:56] LABS: TOTAL PROTEIN 6.1 GM/DL (6.4-8.2)
[2020-10-09 03:57] LABS: BILIRUBIN,TOTAL 0.3 MG/DL (0.1-1.0)
[2020-10-09 03:59] LABS: CREATININE SERUM 0.79 MG/DL (0.60-1.30)
[2020-10-09 04:03] LABS: MAGNESIUM 2.3 MG/DL (1.6-2.4)
[2020-10-09 04:07] LABS: ABG BASE EXCESS -1.7 MMOL/L (-2.5-2.5); ABG OXYGEN SATURATION 61 % (94-100); ABG PCO2 51 MMHG (35-45); ABG PO2 44 MMHG (79-93); ABG TCO2 25.2 MMOL/L (21.0-31.0)
[2020-10-09 04:10] LABS: ABG PH 7.29 (7.37-7.43)
[2020-10-09 04:11] LABS: ALLENS TEST YES-POS; INSPIRED O2 80%; PATIENT TEMP 38.2; VENTILATOR YES
[2020-10-09] MEDS: CEFEPIME INJECTION 1,000 MG in WATER (STERILE) FOR INJECTION 10 ML IV SCH (05:47)
[2020-10-09] MEDS: fentaNYL DRIP PRE-MIX 250 ML IV SCH (05:48)
[2020-10-09] MEDS: POTASSIUM CL 10MEQ/50ML IVPB 50 ML IV SCH (05:55)
[2020-10-09] MEDS: MAGNESIUM 1 GM/100 ML IVPB 100 ML IV SCH (05:55)
[2020-10-09] MEDS: KCL 20 MEQ TAB (K-DUR) PO SCH (05:55)
[2020-10-09] MEDS: inSUlin ASPART (NovoLOG) 1 UNIT/0.01 ML (CHARGE PER UNIT) SC SCH (05:55)
[2020-10-09] MEDS: ENOXAPARIN 40 MG/0.4 ML (LOVENOX) SYR SQ SCH (05:59)
[2020-10-09] MEDS: ACETAMINOPHEN 325 MG TABLET PO PRN (06:57)
[2020-10-09 07:34] VITALS: BP 94/49
[2020-10-09] MEDS: LACRI-LUBE OPTHALMIC OINT 3.5 GM TUBE OU SCH (08:21)
[2020-10-09] MEDS: AZITHROMYCIN INJECTION 250 MG in NS (IVPB) 250 ML IV SCH (08:21)
[2020-10-09] MEDS: PANTOPRAZOLE 40 MG (PROTONIX) VIAL IV SCH (08:21)
[2020-10-09] MEDS: SENNOSIDES 8.6 MG (SENOKOT) TAB PO SCH (08:21)
[2020-10-09] MEDS: DOCUSATE SODIUM 10 MG/ML 10 ML UDC (COLACE) PO SCH (08:21)
[2020-10-09 08:39] VITALS: BP 94/49
[2020-10-09] MEDS ORDERED: NOREPINEPHRINE 8 MG/250 ML 250 ML IV SCH (10:30)
[2020-10-09 10:33] VITALS: BP 64/33
[2020-10-09] MEDS ORDERED: MIDAZOLAM DRIP PRE-MIX 100 ML IV SCH (10:45)
[2020-10-09] MEDS ORDERED: ROCURONIUM 10 MG/ML 5 ML SYRINGE IV ONE ×3 (10:51→15:29)
[2020-10-09] MEDS ORDERED: FUROSEMIDE 40 MG/4 ML INJ (LASIX) ONE (10:58)
[2020-10-09] MEDS ORDERED: LORazepam INJ 2 MG/ML (ATIVAN) VIAL IVP PRN (11:00)
[2020-10-09] MEDS ORDERED: fentaNYL INJ 100 MCG/2 ML AMP IVP PRN (11:00)
[2020-10-09] MEDS ORDERED: FUROSEMIDE 40 MG/4 ML INJ (LASIX) IVP ONE (11:00)
[2020-10-09] MEDS ORDERED: ENOXAPARIN 100 MG/1 ML (LOVENOX) SYR ONE (11:04)
[2020-10-09] MEDS ORDERED: LORazepam INJ 2 MG/ML (ATIVAN) VIAL ONE (11:04)
[2020-10-09] MEDS ORDERED: SODIUM BICARB 8.4% 50 MEQ/50 ML (ABBOTT) SYR IV ONE (11:15)
[2020-10-09] MEDS ORDERED: HEParin DRIP 25000 UNIT/500ML 500 ML IV SCH (11:30)
[2020-10-09] MEDS ORDERED: HEParin 1000 UNIT/ML (10ML VIAL) FOR BOLUS IV SCH (11:30)
--- NOTE | 2020-10-09 11:32 | Discharge Summary ---
Discharge Summary Date of Admission Oct 06, 2020 at 10:03 Date of Discharge Admission Diagnosis Acute respiratory failure due to COVID-19 Comfort Measures/ Time spent on discussion (min): 0 Discharge Diagnosis (1) Acute respiratory failure due to COVID-19 Status: Acute (2) Endotracheally intubated Status: Acute (3) Bacterial pneumonia Status: Acute (4) Hypercoagulable state associated with COVID-19 Status: Acute (5) Morbid obesity Status: Chronic (6) Anxiety and depression Status: Chronic BENTLEY PRYOR MD Oct 09, 2020 11:32
--- NOTE | 2020-10-09 11:35 | Tele-ICU Progress Note ---
Subjective Date Seen by a Provider: Oct 09, 2020 Time Seen by a Provider: 11:34 Sepsis Event Evaluation Height, Weight, BMI Height: '" Weight: lbs. oz. kg; 42.44 BMI Method: Focused Exam Lactate Level 10/06/20 14:00: Lactic Acid Level 1.14 Exam Exam Patient acknowledged, consented, and participated in this virtual visit which was conducted using real time audio/video Vital Signs Date Time Temp Pulse Resp B/P (MAP) Pulse Ox O2 Delivery O2 Flow Rate FiO2 10/09/20 10:33 82 64/33 10/09/20 10:00 84 8 90/37 (54) 93 Mechanical Ventilator 80.00 10/09/20 09:25 80 84/50 10/09/20 09:00 81 11 84/50 (61) 91 Mechanical Ventilator 80.00 10/09/20 08:48 83 90/53 10/09/20 08:39 39.2 85 93 80 10/09/20 08:30 92 Mechanical Ventilator 80 10/09/20 08:00 85 11 90/53 (65) 93 Mechanical Ventilator 80.00 10/09/20 07:34 85 31 93 80 10/09/20 07:00 84 10/09/20 07:00 84 18 94/49 (64) 89 Mechanical Ventilator 80.00 10/09/20 06:57 39.2 10/09/20 06:00 39.4 86 18 106/57 (73) 90 Mechanical Ventilator 80.00 10/09/20 05:47 98/59 10/09/20 05:00 39.3 87 17 94 Mechanical Ventilator 80.00 98/59 (72) 10/09/20 04:00 38.1 84 26 93 Mechanical Ventilator 80.00 104/59 (74) 10/09/20 04:00 94 Mechanical Ventilator 80 10/09/20 03:00 38.6 85 17 90 Mechanical Ventilator 80.00 115/67 (83) 10/09/20 02:14 85 31 94 80 10/09/20 02:05 85 24 111/65 10/09/20 02:05 85 111/65 10/09/20 02:03 85 111/65 10/09/20 02:00 37.6 85 22 93 Mechanical Ventilator 80.00 111/65 (80) 10/09/20 01:00 85 18 95 Mechanical Ventilator 80.00 10/09/20 01:00 85 10/09/20 00:49 94 Mechanical Ventilator 80.00 10/09/20 00:15 96 Mechanical Ventilator 90.00 10/09/20 00:00 94 Mechanical Ventilator 90 10/09/20 00:00 39.2 86 12 92 Mechanical Ventilator 80.00 10/08/20 23:57 92 Mechanical Ventilator 80.00 10/08/20 23:00 39.2 96 12 92 Mechanical Ventilator 75.00 10/08/20 22:31 39.2 10/08/20 22:14 127/68 10/08/20 22:12 88 30 97 80 10/08/20 22:01 39.1 10/08/20 22:00 39.1 89 13 95 Mechanical Ventilator 75.00 10/08/20 21:00 39.0 89 13 96 Mechanical Ventilator 75.00 10/08/20 20:21 94 Mechanical Ventilator 75.00 10/08/20 20:05 38.7 90 Mechanical Ventilator 80.00 10/08/20 19:57 128/77 10/08/20 19:45 94 Mechanical Ventilator 75 10/08/20 19:26 38.1 10/08/20 19:17 38.9 91 23 93 Mechanical Ventilator 70.00 10/08/20 19:13 91 31 99 80 10/08/20 19:00 91 Mechanical Ventilator 80.00 10/08/20 19:00 38.8 91 14 98 Mechanical Ventilator 80.00 10/08/20 19:00 91 10/08/20 18:00 38.8 92 22 86 Mechanical Ventilator 70.00 10/08/20 17:45 97 10/08/20 17:44 92 123/75 10/08/20 17:00 39.1 95 16 94 Mechanical Ventilator 70.00 10/08/20 16:00 39.0 95 17 95 Mechanical Ventilator 70.00 10/08/20 16:00 38.8 10/08/20 16:00 96 Mechanical Ventilator 70 10/08/20 15:05 97 10/08/20 15:04 97 138/72 10/08/20 15:00 96 17 95 Mechanical Ventilator 70.00 10/08/20 14:00 38.6 94 21 94 Mechanical Ventilator 80.00 10/08/20 13:59 92 33 96 80 10/08/20 13:00 37.9 94 17 98 Mechanical Ventilator 80.00 10/08/20 13:00 104 10/08/20 12:00 37.7 100 17 99 Mechanical Ventilator 80.00 10/08/20 12:00 94 Mechanical Ventilator 80 10/08/20 11:48 35.6 I & O 10/09/20 07:00 Intake Total 1410 ml Output Total 1245 ml Balance 165 ml Height & Weight Height: '" Weight: lbs. oz. kg; 42.44 BMI Method: General Appearance: Mild Distress (Uncomfortable), Obese HEENT: PERRL/EOMI, Other (Wearing nonrebreather) Neck: Normal Inspection, Supple Respiratory: Crackles, Decreased Breath Sounds, Other (Intubated and mechanically ventilated) Cardiovascular: Regular Rate, Rhythm, No Edema, No Murmur Extremity: Normal Inspection, No Pedal Edema Neurologic/Psychiatric: Other (Awake but sedated) Skin: Normal Color, Warm/Dry Lymphatic: No Adenopathy Results Lab Laboratory Tests 10/08/20 03:00 10/09/20 03:30 Assessment/Plan Assessment/Plan (Tele-ICU Physician , Progress Note ) Available chart/ vitals / labs / Images reviewed Video assessment done using teleICU camera, rest of exam as per RN Discussed with RN Events overnight : FEBRILE hemodynamically stable, no pressors, I/O = even Drips: precedex propofol As per RN exam : Consultants: Hospital course: 10/06 - resp failure , intubated and transferred from other facility - intubated 10/09 ac 400 , 80 % PEEP 20 VENT SETTINGS. ac 400 , 80 % PEEP 20 ABG reviewed Sedation: RASS Now in ICU, hemodynamically stable Video assessment done using teleICU camera, rest of exam as per RN Discussed with RN. Consultants: A/P Acute hypoxic resp failure - on vapotherm , hypoxic - will try BIPAP with precedex , ordered cxr and abg - VERY HIGH RISK FOR INTUBATION -prone position if able - conservative fluid strategy (aim for even or negative fluid balance - RECEIVED 1L IN ER ( high lactate is related to hypoxix and work of breathing ) [id number]-0/COVID-19 infection- ( symptoms 7.12 , Dx 09/27 - was on doxy -? anything else ) -Remdesivir- as per local MD ( given sever dz , > 2 weeks sickness - no major clinical benefit ) -Steroids IV - started 10/06 -Hypercoagulable state ? , DDIMER elevated -> changed to fill dose lovenox - s/p actemra on 10/06 monitor for superimposed bact PNA - on z max and cefepime 10/06 Lines : RIGHT , (Central Line Necessity Reviewed) Cross: + OG: + Nutrition: Analgesia: Anxiety/ delirium VTE Prophylaxis: lovenox 40 Stress Ulcer Prophylaxis: PPI Glycemic Control: discussed with Dr PRYOR Plans in collaboration with bedside consultants and IM MDs. Discussed with RN to reach out if any questions or concerns A total of 40 minutes of critical care time was devoted to this patient today, required to treat and/or prevent further deterioration of critical care condition ( as above) . ADDENDUM - hypotensive and hypoxix - was given bicarb and rocuronium - improved few minures latter had PEA - code blue x 2 Dr Pryor in the room , and discussing with family changed to heparing gtt after first code for possibvel PE given persistent hypoxia 2 nd code blue was called off BERNARDO BEY MD Oct 09, 2020 11:34
[2020-10-09] MEDS ORDERED: fentaNYL INJ 100 MCG/2 ML AMP IV ONE (15:29)
[2020-10-09] MEDS ORDERED: EPINEPHrine 0.1 MG/ML 10 ML (HOSPIRA) SYR INJ ONE (15:29)
[2020-10-09] MEDS ORDERED: SODIUM BICARB 8.4% 50 MEQ/50 ML (ABBOTT) SYR INJ ONE (15:29)
[2020-10-09] MEDS ORDERED: ENOXAPARIN 100 MG/1 ML (LOVENOX) SYR SC SCH (17:00)
== END 2020-10-09 11:29 | disposition expired | DRG 208 ==
LOC: ICU 10:03 → EDBD 10:03 → ICU 10-09 10:43
PROVIDERS: ADMIT Internal Medicine; ATTEND Internal Medicine
PROC: 5A09457 Assistance with Respiratory Ventilation, 24-96 Consecutive Hours, Continuous Positive Airway Pressure (ICD-10-PCS; 2020-10-06)
PROC: 5A1945Z Respiratory Ventilation, 24-96 Consecutive Hours (ICD-10-PCS; principal; 2020-10-07)
PROC: 0BH17EZ Insertion of Endotracheal Airway into Trachea, Via Natural or Artificial Opening (ICD-10-PCS; 2020-10-07)
DX: U07.1 COVID-19 (principal); J96.01 Acute respiratory failure with hypoxia; J15.9 Unspecified bacterial pneumonia; D68.69 Other thrombophilia; Z68.42 Body mass index [BMI] 45.0-49.9, adult; I46.9 Cardiac arrest, cause unspecified; F41.9 Anxiety disorder, unspecified; F32.9 Major depressive disorder, single episode, unspecified; E66.01 Morbid (severe) obesity due to excess calories; Z73.0 Burn-out
CPT/HCPCS: 36415; 36569; 36600; 71045; 76937; 80048; 80053; 82805; 82947; 83605; 83735; 84100; 84145; 84478; 85025; 85379; 86900; 86901; 87081; 93005; 94002; 94003; 94640; 94660; 94799